=== PATIENT | male | born 1940 | race Caucasian/White ===

== ENCOUNTER → 2016-11-01 | Outpatient (CLI) | payer MEDICARE, OTHER ==
[~2016-11-01] MED LIST: ASPI81CH43; CLOP75TA28; SIMV5TAB50
== END | disposition home or self-care (01) ==
LOC: Rad HDHVI 10:22
PROVIDERS: ATTEND Internal Medicine Cardiovascular Disease
DX: I50.23 Acute on chronic systolic (congestive) heart failure (principal); I10 Essential (primary) hypertension; E78.00 Pure hypercholesterolemia, unspecified; I73.9 Peripheral vascular disease, unspecified; R07.9 Chest pain, unspecified; R42 Dizziness and giddiness
CPT/HCPCS: 93306

== ENCOUNTER → 2016-11-12 | Outpatient (CLI) | payer MEDICARE, OTHER ==
[~2016-11-12] VITALS: Ht 30.5 cm; Wt 0.5 kg
[~2016-11-12] MED LIST changes: +ADENOSINE 6 MG/2 ML INJ IV ONE; +ADENOSINE 70 MG in GIVE UN-DILUTED 0 ML IV ONE; +ADENOSINE 90 MG/30 ML INJ IV ONE
[2016-11-12 12:27] LABS: Basophils # (auto) 0 uL; Basophils % (auto) 0.6 % (0.0-2.0); Eosinophils # (auto) 0 uL; Eosinophils % (auto) 0.5 % (0.0-7.0); Hematocrit 47.5 % (41.0-53.0); Hemoglobin 16.3 g/dL (13.5-17.5); Lymphocytes # (auto) 1.7 uL; Lymphocytes % (auto) 23.6 % (10.0-50.0); Mean Corpuscular Hemoglobin 33.7 pg (28.0-32.0); Mean Corpuscular Hgb Conc. 34.4 g/dL (32.0-36.0); Mean Platelet Volume 8.2 fL (7.4-10.4); Monocytes # (auto) 0.6 uL; Monocytes % (auto) 7.8 % (0.0-12.0); Neutrophils # (auto) 4.8 uL; Neutrophils % (auto) 67.5 % (37.0-80.0); Platelet Count (auto) 226 10^3/uL (140-450); Red Cell Distribution Width 13.5 % (11.6-16.0); White Blood Cell 7.1 10^3/uL (4.4-10.8)
[2016-11-12 12:32] LABS: Urine Bilirubin Negative (Negative); Urine Blood Negative /uL (Negative); Urine Color Yellow (Yellow); Urine Glucose Normal (Normal); Urine Ketone Negative (Negative); Urine Nitrite Negative (Negative); Urine Urobilinogen Normal (Negative); Urine pH 5.5 (5.0-8.0)
[2016-11-12 12:59] LABS: Albumin 4.2 g/dL (3.4-5.0); BUN/Creatinine Ratio 26.5; Bilirubin, Direct 0.2 mg/dL (0-0.2); Bilirubin, Total 0.6 mg/dL (0.2-1.0); Calcium 9.2 mg/dL (8.5-10.1); Potassium 4.1 mmol/L (3.5-5.1); Total Protein 6.8 g/dL (6.4-8.2)
== END | disposition home or self-care (01) ==
LOC: Rad HDHVI 09:14
PROVIDERS: ATTEND Internal Medicine Cardiovascular Disease
DX: I10 Essential (primary) hypertension (principal); E78.00 Pure hypercholesterolemia, unspecified; K74.1 Hepatic sclerosis; E11.9 Type 2 diabetes mellitus without complications; R97.20 Elevated prostate specific antigen [PSA]; R53.81 Other malaise; E03.9 Hypothyroidism, unspecified; D64.9 Anemia, unspecified; E55.9 Vitamin D deficiency, unspecified; N39.0 Urinary tract infection, site not specified
CPT/HCPCS: 36415; 78452; 80048; 80061; 80076; 81003; 82306; 83036; 84153; 84403; 84439; 84443; 85025; 93005; 96374; 96375; J0153

== ENCOUNTER → 2017-05-29 | Outpatient (CLI) | payer MEDICARE, OTHER ==
[~2017-05-29] MED LIST changes: -ADENOSINE 6 MG/2 ML INJ IV ONE; -ADENOSINE 70 MG in GIVE UN-DILUTED 0 ML IV ONE; -ADENOSINE 90 MG/30 ML INJ IV ONE
== END | disposition home or self-care (01) ==
LOC: LAB 09:22
PROVIDERS: ATTEND Internal Medicine Cardiovascular Disease
DX: R53.81 Other malaise (principal)
CPT/HCPCS: 36415; 84403

== ENCOUNTER → 2017-12-26 | Outpatient (CLI) | payer MEDICARE, OTHER | END | disposition home or self-care (01) | LOC: LAB 08:52 | PROVIDERS: ATTEND Internal Medicine Cardiovascular Disease | DX: E29.1 Testicular hypofunction (principal); I10 Essential (primary) hypertension; E11.9 Type 2 diabetes mellitus without complications | CPT/HCPCS: 36415; 84403 ==

== ENCOUNTER → 2018-07-31 | Outpatient (CLI) | payer MEDICARE, BC | END | disposition home or self-care (01) | LOC: Rad HDHVI 15:38 | PROVIDERS: ATTEND Internal Medicine Cardiovascular Disease | DX: I25.10 Atherosclerotic heart disease of native coronary artery without angina pectoris (principal); I35.1 Nonrheumatic aortic (valve) insufficiency; I10 Essential (primary) hypertension; R53.83 Other fatigue | CPT/HCPCS: 93306 ==

== ENCOUNTER → 2018-08-20 | Outpatient (CLI) | payer MEDICARE, BC ==
[~2018-08-20] MED LIST changes: +IOHEXOL 350 MG/ML 100ML IJ ONE; +SODIUM CHLORIDE 0.9% 250 ML IV ONE
== END | disposition home or self-care (01) ==
LOC: Rad HDHVI 09:49
PROVIDERS: ATTEND Internal Medicine Cardiovascular Disease
DX: I11.0 Hypertensive heart disease with heart failure (principal); I50.22 Chronic systolic (congestive) heart failure; I25.10 Atherosclerotic heart disease of native coronary artery without angina pectoris; I25.5 Ischemic cardiomyopathy; I48.91 Unspecified atrial fibrillation; E03.9 Hypothyroidism, unspecified; E78.00 Pure hypercholesterolemia, unspecified; E11.51 Type 2 diabetes mellitus with diabetic peripheral angiopathy without gangrene; Z86.73 Personal history of transient ischemic attack (TIA), and cerebral infarction without residual deficits
CPT/HCPCS: 70496; 82565; 96360; G0463; J7050; Q9967

== ENCOUNTER → 2018-08-25 | Outpatient (CLI) | payer MEDICARE, BC ==
[~2018-08-25] MED LIST changes: -IOHEXOL 350 MG/ML 100ML IJ ONE; -SODIUM CHLORIDE 0.9% 250 ML IV ONE
[2018-08-25 14:10] VITALS: BP 121/83
[2018-08-25 15:03] VITALS: BP_SYST 121; BP_SYST 123; BP_DIAS 79; BP_DIAS 83
[2018-08-25 16:20] VITALS: BP 114/74
== END | disposition home or self-care (01) ==
LOC: CHF HDHVI 14:00
PROVIDERS: ATTEND Internal Medicine Cardiovascular Disease
DX: I25.118 Atherosclerotic heart disease of native coronary artery with other forms of angina pectoris (principal); I25.5 Ischemic cardiomyopathy; I48.91 Unspecified atrial fibrillation; R94.31 Abnormal electrocardiogram [ECG] [EKG]; E11.9 Type 2 diabetes mellitus without complications; I50.23 Acute on chronic systolic (congestive) heart failure; Z98.61 Coronary angioplasty status; Z86.73 Personal history of transient ischemic attack (TIA), and cerebral infarction without residual deficits
CPT/HCPCS: 93005; G0166; G0463

== ENCOUNTER → 2018-08-26 | Outpatient (CLI) | payer MEDICARE, BC ==
[2018-08-26 14:55] VITALS: BP_SYST 132; BP_SYST 136; BP_DIAS 72; BP_DIAS 80
== END | disposition home or self-care (01) ==
LOC: CHF HDHVI 14:13
PROVIDERS: ATTEND Internal Medicine Cardiovascular Disease
DX: I25.718 Atherosclerosis of autologous vein coronary artery bypass graft(s) with other forms of angina pectoris (principal); I25.5 Ischemic cardiomyopathy; I50.23 Acute on chronic systolic (congestive) heart failure; E11.9 Type 2 diabetes mellitus without complications; Z98.61 Coronary angioplasty status
CPT/HCPCS: G0166

== ENCOUNTER → 2018-09-03 | Outpatient (CLI) | payer MEDICARE, BC ==
[2018-09-03 14:52] VITALS: BP 113/97
[2018-09-03 15:55] VITALS: BP 137/74
== END | disposition home or self-care (01) ==
LOC: CHF HDHVI 14:19
PROVIDERS: ATTEND Internal Medicine Cardiovascular Disease
DX: I25.718 Atherosclerosis of autologous vein coronary artery bypass graft(s) with other forms of angina pectoris (principal); I50.23 Acute on chronic systolic (congestive) heart failure; I25.5 Ischemic cardiomyopathy; Z98.61 Coronary angioplasty status; Z86.39 Personal history of other endocrine, nutritional and metabolic disease
CPT/HCPCS: G0166

== ENCOUNTER → 2018-09-04 | Outpatient (CLI) | payer MEDICARE, BC ==
[2018-09-04 13:44] VITALS: BP_SYST 125; BP_SYST 126; BP_DIAS 62; BP_DIAS 70
== END | disposition home or self-care (01) ==
LOC: Rad HDHVI 13:21
PROVIDERS: ATTEND Internal Medicine Cardiovascular Disease
DX: I25.718 Atherosclerosis of autologous vein coronary artery bypass graft(s) with other forms of angina pectoris (principal); I25.5 Ischemic cardiomyopathy; I50.23 Acute on chronic systolic (congestive) heart failure; Z98.61 Coronary angioplasty status; Z86.39 Personal history of other endocrine, nutritional and metabolic disease
CPT/HCPCS: G0166

== ENCOUNTER → 2018-09-05 | Outpatient (CLI) | payer MEDICARE, BC ==
[2018-09-05 13:10] LABS: Potassium 4.3 mmol/L (3.5-5.1)
[2018-09-05 13:16] LABS: BUN/Creatinine Ratio 21.1; Calcium 8.5 mg/dL (8.5-10.1); Uric Acid 7.9 mg/dL (3.5-7.2)
== END | disposition home or self-care (01) ==
LOC: LABCORP 09:33
PROVIDERS: ATTEND Internal Medicine Cardiovascular Disease
DX: I10 Essential (primary) hypertension (principal); M10.9 Gout, unspecified
CPT/HCPCS: 36415; 80048; 84550

== ENCOUNTER → 2018-09-05 | Outpatient (CLI) | payer MEDICARE, BC | END | disposition home or self-care (01) | LOC: XYW 10:09 | PROVIDERS: ATTEND Internal Medicine Cardiovascular Disease | DX: M79.89 Other specified soft tissue disorders (principal) | CPT/HCPCS: 93971 ==

== ENCOUNTER → 2018-09-22 | Outpatient (CLI) | payer MEDICARE, BC ==
[2018-09-22 14:04] VITALS: BP_SYST 140; BP_SYST 159; BP_DIAS 79; BP_DIAS 92
--- NOTE | 2018-09-22 14:04 | NUR ---
EECP Tx# 5 First BP check on his Left arm is at 159/92 with a heart rate of 45bpm. Patient denies any chest pain,SOB,Fatigue. Medications have been taken this AM. Arginext was taken before coming in to his Tx. 1st pleth at 7 min into Tx EECP pressure will slowly be increase up to 160 if tolerable due to Left foot discomfort 11/23. 2nd pleth at 28 min into Tx Patient is tolerating Tx pressure at 160.Monitor shows arrhythmias with a HR of 82bpm.Patient denies any chest pain,SOB,Fatigue at this time.Patient feels comfortable with pressure at 160 and calves.No discomfort on left foot at this moment. We will continue to monitor patient through his Tx if any changes occur. 3rd and final pleth at 50 min into Tx patient is tolerating Tx pressure at this time.Monitor shows arrhythmias with a heart rate of 77bpm.We will continue to monitor patient through his Tx if any other changes occur.Patient has 10 min left till his Tx is completed for the day. Last BP check on his Left arm is at 140/79 with a heart rate of 82bpm. Patient denies any chest pain,SOB,Fatigue at this time.
== END | disposition home or self-care (01) ==
LOC: CHF HDHVI 13:53
PROVIDERS: ATTEND Internal Medicine Cardiovascular Disease
DX: I25.718 Atherosclerosis of autologous vein coronary artery bypass graft(s) with other forms of angina pectoris (principal); I50.23 Acute on chronic systolic (congestive) heart failure; I25.5 Ischemic cardiomyopathy; Z95.5 Presence of coronary angioplasty implant and graft; Z86.39 Personal history of other endocrine, nutritional and metabolic disease
CPT/HCPCS: G0166

== ENCOUNTER → 2018-09-23 | Outpatient (CLI) | payer MEDICARE, BC ==
[2018-09-23 13:50] VITALS: BP_SYST 140; BP_SYST 147; BP_DIAS 90; BP_DIAS 93
== END | disposition home or self-care (01) ==
LOC: Rad HDHVI 13:33
PROVIDERS: ATTEND Internal Medicine Cardiovascular Disease
DX: I82.90 Acute embolism and thrombosis of unspecified vein (principal); E11.59 Type 2 diabetes mellitus with other circulatory complications; I25.718 Atherosclerosis of autologous vein coronary artery bypass graft(s) with other forms of angina pectoris; I25.5 Ischemic cardiomyopathy; I11.0 Hypertensive heart disease with heart failure; I50.23 Acute on chronic systolic (congestive) heart failure; Z98.61 Coronary angioplasty status
CPT/HCPCS: 93970; G0166

== ENCOUNTER → 2018-09-24 | Outpatient (CLI) | payer MEDICARE, BC ==
[2018-09-24 13:50] VITALS: BP_SYST 129; BP_SYST 146; BP_DIAS 62; BP_DIAS 79
--- NOTE | 2018-09-24 13:50 | NUR ---
[facility]P Tx# 7 First BP check on his Left arm is at 146/79 with a heart rate of 89bpm. Patient denies any symptoms or discomfort at this time. Arginext was taken before coming in to his Tx. Medications have anna taken before coming in. 1st pleth at 1 min into Tx patient EECP pressure will be increase up to 200.Patient can't tolerate pressure higher than 200 at the moment. 2nd pleth a 28 min into Tx patient is tolerating Tx pressure at 200 well with no discomfort at this time.Monitor shows excellent pleth valves with a heart rate of 74bpm. 3rd and final pleth at 58 min into Tx patient is doing well at this time.Monitor shows good pleth valves with a heart rate of 75bpm.Patient has 2 min left till his Tx is completed for the day. Last BP and HR check on his Left arm is at 129/62 with a heart rate of 81bpm. Patient denies any symptoms or discomfort at this moment.
== END | disposition home or self-care (01) ==
LOC: CHF HDHVI 13:32
PROVIDERS: ATTEND Internal Medicine Cardiovascular Disease
CPT/HCPCS: G0166

== ENCOUNTER → 2018-09-25 | Outpatient (CLI) | payer MEDICARE, BC ==
[2018-09-25 13:44] VITALS: BP_SYST 128; BP_SYST 147; BP_DIAS 75; BP_DIAS 80
--- NOTE | 2018-09-25 13:44 | NUR ---
[facility]P Tx# 8 First BP check on his Left arm is at 128/75 with a heart rate of 84bpm. Patient denies any chest pain,SOB,Fatigue at this time. Arginext was taken before coming in to his Tx. Medications have been taken before coming in to his Tx. 1st pleth at 1 min into Tx EECP pressure will stay at 120 for today's Tx.Patient has been having discomfort with left foot.M.D. has been notify. 2nd pleth at 43 min into Tx patient is doing well with Tx pressure at 120.No discomfort or any other symptoms at this moment.We will continue to monitor patient through his Tx if any changes occur. 3rd and final pleth at 56 min into Tx patient is doing well at this time.Monitor shows excellent pleth valves with a heart rate of 89bpm.Patient has 4 min left till his Tx is completed for the day. Last BP and HR check on his Left arm is at 147/80 with a heart rate of 71bpm. Patient denies any symptoms or discomfort at this time. Patient will come in tomorrow for Tx# 9
== END | disposition home or self-care (01) ==
LOC: CHF HDHVI 13:30
PROVIDERS: ATTEND Internal Medicine Cardiovascular Disease
DX: I25.718 Atherosclerosis of autologous vein coronary artery bypass graft(s) with other forms of angina pectoris (principal); I25.5 Ischemic cardiomyopathy; I11.0 Hypertensive heart disease with heart failure; I50.23 Acute on chronic systolic (congestive) heart failure; E11.9 Type 2 diabetes mellitus without complications; Z98.61 Coronary angioplasty status
CPT/HCPCS: G0166

== ENCOUNTER → 2018-09-26 | Outpatient (CLI) | payer MEDICARE, BC ==
[2018-09-26 08:42] VITALS: BP_SYST 129; BP_SYST 140; BP_DIAS 86; BP_DIAS 88
--- NOTE | 2018-09-26 08:42 | NUR ---
[facility]P Tx# 9 First BP check on his Left arm is at 140/88 with a heart rate of 81bpm. Patient denies any chest pain,SOB,Fatigue at this time. Arginext was taken before coming in to his Tx. Medications have been taken before coming in to his Tx. 1st pleth at 1 min into Tx EECP pressure will increase up to 200 if tolerable.Patient has no cc at this time. We will monitor patient through Tx if any changes occur. 2nd pleth at 39 min into Tx patient is doing well with Tx pressure at 200.No discomfort or any other symptoms at this moment.We will continue to monitor patient through his Tx if any changes occur. 3rd and final pleth at 58 min into Tx patient is doing well at this time.Monitor shows good pleth valves with a heart rate of 63bpm.Patient has 2 min left till his Tx is completed for the day. Last BP and HR check on his Left arm is at 129/86 with a heart rate of 83bpm. Patient denies any symptoms or discomfort at this time.
== END | disposition home or self-care (01) ==
LOC: CHF HDHVI 08:21
PROVIDERS: ATTEND Internal Medicine Cardiovascular Disease
DX: I25.718 Atherosclerosis of autologous vein coronary artery bypass graft(s) with other forms of angina pectoris (principal); I25.5 Ischemic cardiomyopathy; I11.0 Hypertensive heart disease with heart failure; I50.23 Acute on chronic systolic (congestive) heart failure; E11.9 Type 2 diabetes mellitus without complications; Z98.61 Coronary angioplasty status
CPT/HCPCS: G0166

== ENCOUNTER → 2018-09-29 | Outpatient (CLI) | payer MEDICARE, BC | END | disposition home or self-care (01) | LOC: CHF HDHVI 13:10 | PROVIDERS: ATTEND Internal Medicine Cardiovascular Disease | DX: I25.718 Atherosclerosis of autologous vein coronary artery bypass graft(s) with other forms of angina pectoris (principal); I25.5 Ischemic cardiomyopathy; I11.0 Hypertensive heart disease with heart failure; I50.23 Acute on chronic systolic (congestive) heart failure; Z98.61 Coronary angioplasty status | CPT/HCPCS: G0166 ==

== ENCOUNTER → 2018-09-30 | Outpatient (CLI) | payer MEDICARE, BC ==
[2018-09-30 14:23] VITALS: BP 139/83
[2018-09-30 14:56] VITALS: BP 147/93
== END | disposition home or self-care (01) ==
LOC: CHF HDHVI 13:28
PROVIDERS: ATTEND Internal Medicine Cardiovascular Disease
DX: I25.118 Atherosclerotic heart disease of native coronary artery with other forms of angina pectoris (principal); I11.0 Hypertensive heart disease with heart failure; I25.5 Ischemic cardiomyopathy; I50.23 Acute on chronic systolic (congestive) heart failure; E11.9 Type 2 diabetes mellitus without complications; Z98.61 Coronary angioplasty status
CPT/HCPCS: G0166

== ENCOUNTER → 2018-10-01 | Outpatient (CLI) | payer MEDICARE, BC ==
[2018-10-01 13:31] VITALS: BP 124/75
[2018-10-01 14:31] VITALS: BP 133/88
--- NOTE | 2018-10-01 14:31 | NUR ---
PATIENT COMPLETED TREATMENT WITHOUT AN ADVERSE EVENT. PATIENT DENIED ANY SYMPTOMS DURING TREATMENT. UPPER CUFF TURNED OFF DURING TREATMENT, PATIENT WILL RETURN TOMORROW FOR NEXT TREATMENT.
== END | disposition home or self-care (01) ==
LOC: CHF HDHVI 13:22
PROVIDERS: ATTEND Internal Medicine Cardiovascular Disease
DX: I25.718 Atherosclerosis of autologous vein coronary artery bypass graft(s) with other forms of angina pectoris (principal); I25.5 Ischemic cardiomyopathy; I11.0 Hypertensive heart disease with heart failure; I50.23 Acute on chronic systolic (congestive) heart failure; E11.9 Type 2 diabetes mellitus without complications; Z98.61 Coronary angioplasty status
CPT/HCPCS: G0166

== ENCOUNTER → 2018-10-02 | Outpatient (CLI) | payer MEDICARE, BC ==
[2018-10-02 13:39] VITALS: BP 139/75
[2018-10-02 14:39] VITALS: BP 132/82
--- NOTE | 2018-10-02 14:39 | NUR ---
PATIENT COMPLETED TREATMENT WITHOUT AN ADVERSE EVENT. PT DENIED ANY SYMPTOMS, UPPER CUFF TURNED OFF DURING TREATMENT. PATIENT WILL RETURN TOMORROW FOR NEXT TREATMENT.
== END | disposition home or self-care (01) ==
LOC: CHF HDHVI 13:22
PROVIDERS: ATTEND Internal Medicine Cardiovascular Disease
DX: I25.718 Atherosclerosis of autologous vein coronary artery bypass graft(s) with other forms of angina pectoris (principal); I25.5 Ischemic cardiomyopathy; I11.0 Hypertensive heart disease with heart failure; I50.23 Acute on chronic systolic (congestive) heart failure; E11.9 Type 2 diabetes mellitus without complications; Z98.61 Coronary angioplasty status
CPT/HCPCS: G0166

== ENCOUNTER → 2018-10-03 | Outpatient (CLI) | payer MEDICARE, BC ==
[2018-10-03 08:30] VITALS: BP_SYST 130; BP_SYST 138; BP_DIAS 78; BP_DIAS 89
--- NOTE | 2018-10-03 09:23 | NUR ---
[facility] Tx#14 First BP check on his Left arm is at 138/78 with a heart rate of 80bpm. Arginext was taken before coming in to his Tx. Patient is having discomfort on right knee 11/23 4 days.Will keep monitoring patient through his Tx is any changes occur. 2nd pleth at 32 min into Tx patient EECP pressure is at 160 patient is tolerating Tx pressure at 160.EECP pressure was reduce at this time.Patient denies any symptoms or discomfort at this time. 3rd and final pleth at 50 min into Tx patient is tolerating Tx pressure at this time.Monitor shows good pleth valves with a heart rate of 78bpm.Patient has 10 min left till Tx is completed for the day. Last BP check on Left arm is at 130/89 with a heart rate of 76bpm.
== END | disposition home or self-care (01) ==
LOC: CHF HDHVI 08:36
PROVIDERS: ATTEND Internal Medicine Cardiovascular Disease
DX: I25.718 Atherosclerosis of autologous vein coronary artery bypass graft(s) with other forms of angina pectoris (principal); I25.5 Ischemic cardiomyopathy; I11.0 Hypertensive heart disease with heart failure; I50.23 Acute on chronic systolic (congestive) heart failure; E11.9 Type 2 diabetes mellitus without complications; Z98.61 Coronary angioplasty status
CPT/HCPCS: G0166

== ENCOUNTER → 2018-10-07 | Outpatient (CLI) | payer MEDICARE, BC ==
[2018-10-07 13:41] VITALS: BP_SYST 129; BP_SYST 130; BP_DIAS 76; BP_DIAS 82
--- NOTE | 2018-10-07 13:41 | NUR ---
[facility] Tx# 15 First BP check on his Left arm is at 129/82 with a heart rate of 82bpm. Patient came in and c/o Discomfort in both legs at this time 02/23. EECP pressure will be increase as tolerable with upper cuff turn off during his Tx. Medications are the same Arginext has been taken before coming in to his Tx. 1st pleth at 2 min into Tx patient EECP pressure will be increase if tolerable. 2nd pleth at 25 min into Tx patient is tolerating Tx pressure at 80 with upper cuff turn off during his Tx. Monitor shows good pleth valves with a heart rate of 80bpm. 3rd and final pleth at 45 min into Tx patient is tolerating tx pressure at this time.Patient denies any symptoms or discomfort at this time.Monitor show good pleth valves with a heart rate of 88bpm.Patient has 15 min left till his Tx is completed for the day. Last BP and HR check on his Left arm is at 130/76 with a heart rate of 78bpm. Patient denies any symptoms or discomfort at this time. Patient will notify us tomorrow if he keeps having discomfort in both legs at this time patient denies any symptoms or discomfort.
== END | disposition home or self-care (01) ==
LOC: CHF HDHVI 13:16
PROVIDERS: ATTEND Internal Medicine Cardiovascular Disease
DX: I25.718 Atherosclerosis of autologous vein coronary artery bypass graft(s) with other forms of angina pectoris (principal); I25.5 Ischemic cardiomyopathy; I11.0 Hypertensive heart disease with heart failure; I50.23 Acute on chronic systolic (congestive) heart failure; E11.9 Type 2 diabetes mellitus without complications; Z98.61 Coronary angioplasty status
CPT/HCPCS: G0166

== ENCOUNTER → 2018-10-08 | Outpatient (CLI) | payer MEDICARE, BC ==
[2018-10-08 13:47] VITALS: BP_SYST 139; BP_SYST 141; BP_DIAS 73; BP_DIAS 89
--- NOTE | 2018-10-08 13:47 | NUR ---
[facility] Tx# 16 First BP check on his Left arm is at 139/73 with a heart rate of 70bpm. Patient states he feels no discomfort from yesterday's Tx.Patient previously c/o discomfort on lower extremities. Arginext was taken this AM before coming in to his Tx. Medications have been taken before coming in to his Tx. 1st pleth at 7 min into Tx patient EECP pressure will be increase if tolerable. 2nd pleth at 37 min into Tx patient will like Tx pressure to be reduce can't tolerate Tx pressure at 120 at this time. Monitor shows excellent pleth valves with a heart rate of 82bpm. 3rd and final pleth at 59 min into Tx patient is tolerating Tx pressure at 80 well at this with no complaints or problems at this moment.Patient has 1 min left till his Tx is completed for the day. Last BP check on his Left arm is at 141/89 with a heart rate of 77bpm. Patient denies any symptoms or discomfort at this time.
== END | disposition home or self-care (01) ==
LOC: CHF HDHVI 12:42
PROVIDERS: ATTEND Internal Medicine Cardiovascular Disease
DX: I25.718 Atherosclerosis of autologous vein coronary artery bypass graft(s) with other forms of angina pectoris (principal); I25.5 Ischemic cardiomyopathy; I11.0 Hypertensive heart disease with heart failure; I50.23 Acute on chronic systolic (congestive) heart failure; E11.9 Type 2 diabetes mellitus without complications; M10.9 Gout, unspecified; Z98.61 Coronary angioplasty status
CPT/HCPCS: G0166

== ENCOUNTER → 2018-10-09 | Outpatient (CLI) | payer MEDICARE, BC ==
[2018-10-09 13:39] VITALS: BP_SYST 126; BP_SYST 137; BP_DIAS 75; BP_DIAS 89
--- NOTE | 2018-10-09 13:39 | NUR ---
[facility] Tx# 17 First BP check on his Left arm is at 137/89 with a heart rate of 75bpm. Per Patient he does not feel no discomfort in lower extremities Arginext was taken this AM before coming in to his Tx. Medications have been taken before coming in to his Tx. 1st pleth at 7 min into Tx patient EECP pressure will be increase if tolerable. 2nd pleth at 34 min into Tx patient is tolerating Tx pressure at 80 at this time we tried to increase pressure but patient can't tolerate it.Pressure is at 80 with upper cuff off.Monitor shows good pleth valves with a heart rate of 67bpm. 3rd and final pleth at 55 min into Tx patient is doing well at this time.Monitor shows good pleth valves with a heart rate of 67bpm.Patient denies any symptoms or discomfort at this time.Patient has 5 min left till his Tx is completed for the day. Last BP check on his Left arm is at 126/75 with a heart rate of 67bpm. Patient denies any symptoms or discomfort at this time.
== END | disposition home or self-care (01) ==
LOC: Rad HDHVI 13:13
PROVIDERS: ATTEND Internal Medicine Cardiovascular Disease
DX: I25.718 Atherosclerosis of autologous vein coronary artery bypass graft(s) with other forms of angina pectoris (principal); I25.5 Ischemic cardiomyopathy; I50.23 Acute on chronic systolic (congestive) heart failure; E11.9 Type 2 diabetes mellitus without complications; Z98.61 Coronary angioplasty status
CPT/HCPCS: G0166

== ENCOUNTER → 2018-10-13 | Outpatient (CLI) | payer MEDICARE, BC ==
[2018-10-13 13:38] VITALS: BP_SYST 117; BP_SYST 140; BP_DIAS 72; BP_DIAS 87
--- NOTE | 2018-10-13 13:38 | NUR ---
[facility] Tx# 18 First BP check in left arm is at 140/87 with a heart rate of 84bpm. Patient denies any symptoms or discomfort at this time. Patient took his Arginext before coming in to his Tx. Medications are the same no new changes. 1st pleth at 9 min into Tx EECP pressure will increase if tolerable. 2nd pleth at 28 min into Tx patient is tolerating Tx pressure at 160 well with no complaints or problems at this moment. Monitor shows good pleth valves with a heart rate of 87bpm. 3rd and final pleth at 50 min into Tx patient is tolerating Tx pressure at 160 well with no discomfort at this time.Monitor shows excellent pleth valves with a heart rate of 83bpm.Patient has 10 min left till his Tx is completed for the day. Last BP check on his Left arm is at 117/72 with a heart rate of 81bpm. Patient denies any symptoms or discomfort at this time.
== END | disposition home or self-care (01) ==
LOC: CHF HDHVI 13:29
PROVIDERS: ATTEND Internal Medicine Cardiovascular Disease
DX: I25.718 Atherosclerosis of autologous vein coronary artery bypass graft(s) with other forms of angina pectoris (principal); I25.5 Ischemic cardiomyopathy; E11.9 Type 2 diabetes mellitus without complications; I11.0 Hypertensive heart disease with heart failure; I50.23 Acute on chronic systolic (congestive) heart failure; Z98.61 Coronary angioplasty status
CPT/HCPCS: G0166

== ENCOUNTER → 2018-10-14 | Outpatient (CLI) | payer MEDICARE, BC ==
[2018-10-14 13:47] VITALS: BP_SYST 114; BP_SYST 140; BP_DIAS 79; BP_DIAS 84
--- NOTE | 2018-10-14 13:47 | NUR ---
[facility] Tx# 19 First BP check in left arm is at 140/79 with a heart rate of 84bpm. Patient denies any symptoms or discomfort at this time. Patient took his Arginext before coming in to his Tx. Medications are the same no new changes. 1st pleth at 7 min into Tx EECP pressure will increase if tolerable. 2nd pleth at 41 min into Tx patient is tolerating Tx pressure at 120 well with no complaints or problems at this moment.Patient can't tolerate EECP pressure higher than 120 for today's Tx. Monitor shows good pleth valves with a heart rate of 92bpm. 3rd and final pleth at 55 min into Tx patient is tolerating Tx pressure at 120 well .Monitor shows good pleth valves with a heart rate of 91bpm.Patient has 5 min left till his Tx is completed for the day. Last BP check on his Left arm is at 114/84 with a heart rate of 89bpm. Patient denies any symptoms or discomfort at this time.
== END | disposition home or self-care (01) ==
LOC: CHF HDHVI 13:22
PROVIDERS: ATTEND Internal Medicine Cardiovascular Disease
DX: I25.718 Atherosclerosis of autologous vein coronary artery bypass graft(s) with other forms of angina pectoris (principal); I25.5 Ischemic cardiomyopathy; I11.0 Hypertensive heart disease with heart failure; I50.23 Acute on chronic systolic (congestive) heart failure; E11.9 Type 2 diabetes mellitus without complications; Z98.61 Coronary angioplasty status
CPT/HCPCS: G0166

== ENCOUNTER → 2018-10-15 | Outpatient (CLI) | payer MEDICARE, BC ==
[2018-10-15 13:33] VITALS: BP_SYST 121; BP_SYST 130; BP_DIAS 66; BP_DIAS 75
--- NOTE | 2018-10-15 13:33 | NUR ---
[facility]P Tx# 20 First BP check on his Left arm is at 121/75 with a heart rate of 79bpm.Medications are the same no new changes.Arginext was taken before coming in to his Tx.Patient is doing well at this time EECP pressure at 120 patient can't tolerate pressure higher than 120 at this time.Monitor shows good pleth valves.Patient is doing well at this time. Last BP check on his Left arm is at 130/66 with a heart rate of 73bpm. Patient denies any symptoms or discomfort at this time.
== END | disposition home or self-care (01) ==
LOC: CHF HDHVI 13:09
PROVIDERS: ATTEND Internal Medicine Cardiovascular Disease
DX: I25.718 Atherosclerosis of autologous vein coronary artery bypass graft(s) with other forms of angina pectoris (principal); I25.5 Ischemic cardiomyopathy; I11.0 Hypertensive heart disease with heart failure; I50.23 Acute on chronic systolic (congestive) heart failure; E11.9 Type 2 diabetes mellitus without complications; Z98.61 Coronary angioplasty status
CPT/HCPCS: G0166

== ENCOUNTER → 2018-10-16 | Outpatient (CLI) | payer MEDICARE, BC ==
[2018-10-16 10:07] VITALS: BP_SYST 113; BP_SYST 124; BP_DIAS 71; BP_DIAS 83
--- NOTE | 2018-10-16 10:07 | NUR ---
[facility] Tx# 21 First BP check on his Left arm is at 113/71 with a heart rate of 71bpm.Patient denies any symptoms or discomfort at this time.Patient took his Arginext before coming in to his Tx.Medications are the same no new changes.EECP pressure will be increase if tolerable. Patient is doing well with his Tx.Patient denies any symptoms or discomfort at this time.Patient is tolerating Tx pressure at 120 at his moment.Patient can't tolerate Tx pressure higher that 120 at this time.Monitor shows good pleth valves no complaints or discomfort at this time. Patient has completed Tx for the day. Last BP check on his Left arm is at 124/83 with a heart rate of 77bpm. Patient denies any symptoms or discomfort at this time.
== END | disposition home or self-care (01) ==
LOC: Rad HDHVI 10:08
PROVIDERS: ATTEND Internal Medicine Cardiovascular Disease
DX: I25.718 Atherosclerosis of autologous vein coronary artery bypass graft(s) with other forms of angina pectoris (principal); I25.5 Ischemic cardiomyopathy; I11.0 Hypertensive heart disease with heart failure; I50.23 Acute on chronic systolic (congestive) heart failure; E11.9 Type 2 diabetes mellitus without complications; Z98.61 Coronary angioplasty status
CPT/HCPCS: G0166

== ENCOUNTER → 2018-10-17 | Outpatient (CLI) | payer MEDICARE, BC ==
[2018-10-17 08:40] VITALS: BP_SYST 128; BP_SYST 138; BP_DIAS 84
--- NOTE | 2018-10-17 08:40 | NUR ---
[facility]P Tx# 22 First BP check on his Left arm is at 128/84 with a heart rate of 75bpm. Patient denies any symptoms or discomfort at this time. Patient took his Arginext before coming in to his Tx. Medications are the same no new changes. EECP pressure will increase if tolerable. 2nd pleth at 38 min into Tx patient is tolerating Tx pressure at 120 patient can't tolerate pressure higher than 120 at this moment.Monitor show good pleth valves.Patient denies any symptoms or discomfort at this time. 3rd and final pleth at 52 min into Tx Patient is tolerating Tx pressure at 120 well with no complaints or discomfort at this time.Monitor show excellent pleth valves with a heart rate of 74bpm.Patient has 8 min left till his Tx is completed for the day. Last BP check on his Left arm is at 138/84 with a heart rate of 71bpm. Patient denies any symptoms or discomfort at this time.
== END | disposition home or self-care (01) ==
LOC: CHF HDHVI 08:13
PROVIDERS: ATTEND Internal Medicine Cardiovascular Disease
DX: I25.718 Atherosclerosis of autologous vein coronary artery bypass graft(s) with other forms of angina pectoris (principal); I25.5 Ischemic cardiomyopathy; I11.0 Hypertensive heart disease with heart failure; I50.23 Acute on chronic systolic (congestive) heart failure; E11.9 Type 2 diabetes mellitus without complications; Z98.61 Coronary angioplasty status
CPT/HCPCS: G0166

== ENCOUNTER → 2018-10-20 | Outpatient (CLI) | payer MEDICARE, BC ==
[2018-10-20 14:07] VITALS: BP_SYST 134; BP_SYST 140; BP_DIAS 79; BP_DIAS 81
--- NOTE | 2018-10-20 14:07 | NUR ---
[facility]P Tx# 23 First BP check on his Left arm is at 140/79 with a heart rate 80bpm. Patient denies any symptoms or discomfort at this time. Arginext was taken before coming in to his Tx. 1st pleth at 1 min into Tx EECP pressure will increase if tolerable. 2nd pleth at 28 min into Tx patient is tolerating Tx pressure at 120 patient can't tolerate Tx pressure higher than 120 at this time. Monitor shows excellent pleth valves with a heart rate of 75bpm. 3rd and final pleth at 50 min into Tx.Monitor shows excellent pleth valves with a heart rate of 82bpm. Patient has 10 min left till his Tx is completed for the day. Last BP and HR check on his Left arm is at 134/81 with a heart rate of 69bpm. Patient denies any symptoms or discomfort at this time.
== END | disposition home or self-care (01) ==
LOC: CHF HDHVI 14:07
PROVIDERS: ATTEND Internal Medicine Cardiovascular Disease
DX: I25.718 Atherosclerosis of autologous vein coronary artery bypass graft(s) with other forms of angina pectoris (principal); I50.23 Acute on chronic systolic (congestive) heart failure; I25.5 Ischemic cardiomyopathy; E11.9 Type 2 diabetes mellitus without complications; Z98.61 Coronary angioplasty status
CPT/HCPCS: G0166

== ENCOUNTER → 2018-10-21 | Outpatient (CLI) | payer MEDICARE, BC ==
[2018-10-21 13:44] VITALS: BP_SYST 123; BP_SYST 128; BP_DIAS 67; BP_DIAS 74
--- NOTE | 2018-10-21 13:44 | NUR ---
E[facility]P Tx# 25 First BP check on his left arm is at 128/74 with a heart rate of 75bpm.Arginext was taken at home before coming in to his Tx.Medications are the same no new changes. 1st pleth at 6 min into Tx pressure will increase if tolerable. 2nd pleth at 25 min into Tx patient is Tolerating Tx pressure at 120 well with no complaints or discomfort at this moment.Patient can't tolerate EECP pressure higher than 120 at this time. Monitor shows a good ekg and waveforms with good pleth valves and a heart rate of 75bpm. 3rd and final pleth at 46 min into Tx patient is doing well and tolerating Tx pressure at 120 with no symptoms or discomfort at this time.Monitor shows a good ekg and waveforms with excellent pleth valves and a heart rate of 72bpm.Patient has 14 min left till his Tx is completed for the day. Last BP check on left arm is at 123/67 with a heart rate of 72bpm. Patient denies any symptoms or discomfort at this time.
== END | disposition home or self-care (01) ==
LOC: CHF HDHVI 13:13
PROVIDERS: ATTEND Internal Medicine Cardiovascular Disease
DX: I25.718 Atherosclerosis of autologous vein coronary artery bypass graft(s) with other forms of angina pectoris (principal); E11.9 Type 2 diabetes mellitus without complications; I25.5 Ischemic cardiomyopathy; I50.23 Acute on chronic systolic (congestive) heart failure; Z98.61 Coronary angioplasty status
CPT/HCPCS: G0166

== ENCOUNTER → 2018-10-23 | Outpatient (CLI) | payer MEDICARE, BC ==
[2018-10-23 13:40] VITALS: BP_SYST 110; BP_SYST 133; BP_DIAS 66; BP_DIAS 68
--- NOTE | 2018-10-23 13:40 | NUR ---
[facility]P Tx# 26 First BP check on Left arm is at 133/66 with a heart rate of 86bpm. Arginext was taken before coming in to his Tx. 1st pleth at 1 min into Tx EECP pressure will be increase if tolerable. 2nd pleth at 25 min into Tx patient is tolerating Tx pressure at 120 well with no complaints or problems at this moment.Patient can't tolerate Tx pressure higher than 120 at this moment.Monitor shows good pleth valves with a heart rate of 80bpm. 3rd and final pleth at 46 min into Tx patient is tolerating Tx pressure at 120 well with no discomfort at this time.Monitor shows excellent pleth valves with a good ekg and waveforms and a heart rate of 77bpm. Patient has 14 min left till his Tx is completed for the day. Last BP check on his Left arm is at 110/68 with a heart rate of 74bpm. Patient denies any symptoms or discomfort at this time.
== END | disposition home or self-care (01) ==
LOC: CHF HDHVI 13:23
PROVIDERS: ATTEND Internal Medicine Cardiovascular Disease
DX: I25.718 Atherosclerosis of autologous vein coronary artery bypass graft(s) with other forms of angina pectoris (principal); I25.5 Ischemic cardiomyopathy; I11.0 Hypertensive heart disease with heart failure; I50.23 Acute on chronic systolic (congestive) heart failure; E11.9 Type 2 diabetes mellitus without complications; Z98.61 Coronary angioplasty status
CPT/HCPCS: G0166

== ENCOUNTER → 2018-10-24 | Outpatient (CLI) | payer MEDICARE, BC ==
[2018-10-24 08:47] VITALS: BP_SYST 132; BP_SYST 138; BP_DIAS 60; BP_DIAS 72
--- NOTE | 2018-10-24 08:47 | NUR ---
E[facility]P Tx# 27 First BP check on his left arm is at 138/72 with a heart rate of 88bpm. Patient denies any symptoms or discomfort at this time. Arginext was taken before coming in to his Tx. 1st pleth at 1 min into Tx Patient EECP pressure will be increase if tolerable. 2nd pleth at 42 min into Tx patient is tolerating Tx pressure at 120 at this moment.Patient can't tolerate Tx pressure higher than 120 at this moment.Patient denies any symptoms or discomfort at this time. 3rd and final pleth at 55 min into Tx patient is doing well with Tx pressure at 120.Monitor shows excellent pleth valves with a heart rate of 75bpm.Patient has 5 min left till his Tx is completed for the day. Last BP check on his Left arm is at 132/60 with a heart rate 68bpm. Patient denies any symptoms or discomfort at this time.
== END | disposition home or self-care (01) ==
LOC: CHF HDHVI 08:46
PROVIDERS: ATTEND Internal Medicine Cardiovascular Disease
DX: I25.718 Atherosclerosis of autologous vein coronary artery bypass graft(s) with other forms of angina pectoris (principal); I25.5 Ischemic cardiomyopathy; I11.0 Hypertensive heart disease with heart failure; I50.23 Acute on chronic systolic (congestive) heart failure; E11.9 Type 2 diabetes mellitus without complications; Z98.61 Coronary angioplasty status
CPT/HCPCS: G0166

== ENCOUNTER → 2018-10-27 | Outpatient (CLI) | payer MEDICARE, BC ==
--- NOTE | 2018-10-28 08:00 | NUR ---
E[facility]P Tx# 28 Notes for DOS of 10/27/2018 First BP check on his Left arm is at 120/69 with a heart rate of 89bpm. Patient denies any symptoms or discomfort at this time. Arginext was taken before coming in to his Tx. 1st pleth at 1 min into Tx patient EECP pressure will increase if tolerable. 2nd pleth at 33 min into Tx patient is tolerating Tx pressure at 120 well with no discomfort at this time.Patient can't tolerate pressure at a higher rate at this time. 3rd and final pleth at 54 min into Tx patient is doing well with no discomfort at this time.Monitor shows good pleth valves with a heart rate of 91bpm.Patient denies any symptoms or discomfort at this time. Patient has 6 min left till his Tx is completed for the day. Last BP check on his Left arm is at 126/70 with a heart rate of 80bpm. Patient denies any symptoms or discomfort at this time.
[2018-10-28 09:24] VITALS: BP_SYST 120; BP_SYST 126; BP_DIAS 69; BP_DIAS 70
== END | disposition home or self-care (01) ==
LOC: CHF HDHVI 13:30
PROVIDERS: ATTEND Internal Medicine Cardiovascular Disease
DX: I25.718 Atherosclerosis of autologous vein coronary artery bypass graft(s) with other forms of angina pectoris (principal); I25.5 Ischemic cardiomyopathy; I11.0 Hypertensive heart disease with heart failure; I50.23 Acute on chronic systolic (congestive) heart failure; E11.9 Type 2 diabetes mellitus without complications; Z98.61 Coronary angioplasty status
CPT/HCPCS: G0166

== ENCOUNTER → 2018-10-28 | Outpatient (CLI) | payer MEDICARE, BC ==
[2018-10-28 10:23] VITALS: BP_SYST 125; BP_SYST 140; BP_DIAS 72; BP_DIAS 78
--- NOTE | 2018-10-28 10:23 | NUR ---
[facility]P Tx# 29 First BP check on his Left arm is at 140/72 with a heart rate of 880bpm. Patient denies any symptoms or discomfort at this time. Arginext was taken before coming in to his Tx. 1st pleth at 1 min into Tx patient EECP pressure will increase if tolerable. 2nd pleth at 30 min into Tx patient is tolerating Tx pressure at 160 well with no discomfort at this time.Monitor shows excellent pleth valves with a heart rate of 85bpm. 3rd and final pleth at 49 min into Tx patient is doing well with no discomfort at this time.Monitor shows excellent pleth valves with a heart rate of 83bpm.Patient denies any symptoms or discomfort at this time.Patient has 11 min left till his Tx is completed for the day. At 53 min into Tx patient needs a restroom break per patient he would like to stop his Tx for the day if he only has 7 min left. Last BP check on his Left arm is at 125/78 with a heart rate of 67bpm. Patient denies any symptoms or discomfort at this time.
== END | disposition home or self-care (01) ==
LOC: CHF HDHVI 10:17
PROVIDERS: ATTEND Internal Medicine Cardiovascular Disease
DX: I25.718 Atherosclerosis of autologous vein coronary artery bypass graft(s) with other forms of angina pectoris (principal); I11.0 Hypertensive heart disease with heart failure; I50.23 Acute on chronic systolic (congestive) heart failure; I25.5 Ischemic cardiomyopathy; E11.9 Type 2 diabetes mellitus without complications; Z98.61 Coronary angioplasty status
CPT/HCPCS: G0166

== ENCOUNTER → 2018-10-29 | Outpatient (CLI) | payer MEDICARE, BC ==
[2018-10-29 13:31] VITALS: BP_SYST 133; BP_SYST 140; BP_DIAS 72
--- NOTE | 2018-10-29 13:31 | NUR ---
E[facility]P Tx# 30 First BP check on his Left arm is at 140/72 with a heart rate of 80bpm. Patient denies any symptoms or discomfort at this time. Arginext was taken before coming in to his Tx. 1st pleth at 10 min into Tx patient EECP pressure will increase if tolerable. 2nd pleth at 25 min into Tx patient is tolerating Tx pressure at 160 well with no discomfort at this time.Monitor shows excellent pleth valves with a heart rate of 69bpm. 3rd and final pleth at 45 min into Tx patient is doing well with no discomfort at this time.Monitor shows good pleth valves with a heart rate of 73bpm.Patient denies any symptoms or discomfort at this time.Patient has 15 min left till his Tx is completed for the day. Last BP check on his Left arm is at 133/72 with a heart rate of 76bpm. Patient denies any symptoms or discomfort at this time. Addendum: 10/30/18 at 1423 by HERB GARCIA [id number] DOCUMENTATION ERROR FOR DOS 10/29/2018 PLEASE DISREGARD EECP TX# 30 FOR THIS DOS. CORRECT EECP TX # 29.THANK YOU.
== END | disposition home or self-care (01) ==
LOC: CHF HDHVI 13:01
PROVIDERS: ATTEND Internal Medicine Cardiovascular Disease
DX: I25.718 Atherosclerosis of autologous vein coronary artery bypass graft(s) with other forms of angina pectoris (principal); I25.5 Ischemic cardiomyopathy; E11.9 Type 2 diabetes mellitus without complications; I50.23 Acute on chronic systolic (congestive) heart failure; Z98.61 Coronary angioplasty status
CPT/HCPCS: G0166

== ENCOUNTER → 2018-10-30 | Outpatient (CLI) | payer MEDICARE, BC ==
--- NOTE | 2018-10-30 13:31 | NUR ---
[facility] Tx# 30 First BP check on his Left arm is at 140/86 with a heart rate of 82bpm. Patient denies any symptoms or discomfort at this time. Arginext was taken before coming in to his Tx. 1st pleth at 1 min into Tx patient EECP pressure will increase if tolerable. 2nd pleth at 26 min into Tx patient is tolerating Tx pressure at 160 well with no discomfort at this time.Monitor shows excellent pleth valves with a heart rate of 87bpm. 3rd and final pleth at 44 min into Tx patient is doing well with no discomfort at this time.Monitor shows good pleth valves with a heart rate of 84bpm.Patient denies any symptoms or discomfort at this time.Patient has 16 min left till his Tx is completed for the day. Last BP check on his Left arm is at 140/76 with a heart rate of 70bpm. Patient denies any symptoms or discomfort at this time.
[2018-10-30 14:41] VITALS: BP_SYST 140; BP_DIAS 76; BP_DIAS 86
== END | disposition home or self-care (01) ==
LOC: CHF HDHVI 13:22
PROVIDERS: ATTEND Internal Medicine Cardiovascular Disease
DX: I25.718 Atherosclerosis of autologous vein coronary artery bypass graft(s) with other forms of angina pectoris (principal); I25.5 Ischemic cardiomyopathy; E11.9 Type 2 diabetes mellitus without complications; I50.23 Acute on chronic systolic (congestive) heart failure; Z98.61 Coronary angioplasty status
CPT/HCPCS: G0166

== ENCOUNTER → 2018-10-31 | Outpatient (CLI) | payer MEDICARE, BC ==
[2018-10-31 08:34] VITALS: BP_SYST 138; BP_SYST 140; BP_DIAS 70; BP_DIAS 79
--- NOTE | 2018-10-31 12:25 | NUR ---
E[facility]P Tx# 31 First BP check on his Left arm is at 140/79 with a heart rate of 75bpm. Patient denies any symptoms or discomfort at this time. Arginext was taken before coming in to his Tx. 1st pleth at 7 min into Tx patient EECP pressure will increase if tolerable. 2nd pleth at 48 min into Tx patient will like Tx pressure to be reduce to 120.Patient can't tolerate EECP pressure at 160 at this time. 3rd and final pleth at 55 min into Tx patient is doing well with no discomfort at this time.Monitor shows good pleth valves with a heart rate of 71bpm.Patient denies any symptoms or discomfort at this time.Patient has 5 min left till his Tx is completed for the day. Last BP check on his Left arm is at 138/70 with a heart rate of 73bpm. Patient denies any symptoms or discomfort at this time.
== END | disposition home or self-care (01) ==
LOC: Rad HDHVI 08:27
PROVIDERS: ATTEND Internal Medicine Cardiovascular Disease
DX: I25.718 Atherosclerosis of autologous vein coronary artery bypass graft(s) with other forms of angina pectoris (principal); I25.5 Ischemic cardiomyopathy; E11.9 Type 2 diabetes mellitus without complications; I11.0 Hypertensive heart disease with heart failure; I50.23 Acute on chronic systolic (congestive) heart failure; Z98.61 Coronary angioplasty status
CPT/HCPCS: G0166

== ENCOUNTER → 2018-11-03 | Outpatient (CLI) | payer MEDICARE, BC ==
[2018-11-03 13:30] VITALS: BP_SYST 125; BP_SYST 138; BP_DIAS 76; BP_DIAS 83
--- NOTE | 2018-11-03 13:30 | NUR ---
E[facility]P Tx# 32 First BP check on his Left arm is at 125/83 with a heart rate of 87bpm. Patient states he has body ache will like to continue Tx with low pressure. Arginext was taken before coming in to his Tx. 1st pleth at 7 min into Tx patient EECP pressure will stay at 80 due to patient c/o body ache.Will continue to monitor patient if any other changes occur. 2nd pleth at 32 min into Tx patient is tolerating Tx pressure at 80 with no complaints or discomfort at this moment.Monitor shows excellent pleth valves with a heart rate of 90.We will keep monitoring patient through his Tx if any changes occur. 3rd and final pleth at 50 min into Tx patient is doing well with no discomfort at this time.Monitor shows excellent pleth valves with a heart rate of 84bpm.Patient denies any symptoms or discomfort at this time.Patient has 10 min left till his Tx is completed for the day. Last BP check on his Left arm is at 138/76 with a heart rate of 76bpm. Patient denies any symptoms or discomfort at this time.
== END | disposition home or self-care (01) ==
LOC: CHF HDHVI 12:51
PROVIDERS: ATTEND Internal Medicine Cardiovascular Disease
DX: I25.718 Atherosclerosis of autologous vein coronary artery bypass graft(s) with other forms of angina pectoris (principal); I50.23 Acute on chronic systolic (congestive) heart failure; I25.5 Ischemic cardiomyopathy; E11.9 Type 2 diabetes mellitus without complications; Z98.61 Coronary angioplasty status
CPT/HCPCS: G0166

== ENCOUNTER → 2018-11-04 | Outpatient (CLI) | payer MEDICARE, BC ==
[2018-11-04 13:24] VITALS: BP_SYST 122; BP_SYST 128; BP_DIAS 71; BP_DIAS 80
--- NOTE | 2018-11-04 13:24 | NUR ---
E[facility]P Tx# 33 First BP check on his Left arm is at 122/80 with a heart rate of 64bpm. Patient states he has body ache will like to continue Tx with low pressure. Arginext was taken before coming in to his Tx. 1st pleth at 3 min into Tx patient EECP pressure will stay at 80 due to patient c/o body ache.Will continue to monitor patient if any other changes occur. 2nd pleth at 31 min into Tx patient is tolerating Tx pressure at 80 with no complaints or discomfort at this moment.Patient is resting at this time. 3rd and final pleth at 51 min into Tx patient is doing well with no discomfort at this time.Monitor shows excellent pleth valves with a heart rate of 83bpm.Patient has 09 min left till his Tx is completed for the day. Last BP check on his Left arm is at 128/71 with a heart rate of 64bpm. Patient denies any symptoms or discomfort at this time.
== END | disposition home or self-care (01) ==
LOC: CHF HDHVI 13:13
PROVIDERS: ATTEND Internal Medicine Cardiovascular Disease
DX: I25.718 Atherosclerosis of autologous vein coronary artery bypass graft(s) with other forms of angina pectoris (principal); I25.5 Ischemic cardiomyopathy; I50.23 Acute on chronic systolic (congestive) heart failure; E11.9 Type 2 diabetes mellitus without complications; Z98.61 Coronary angioplasty status
CPT/HCPCS: G0166

== ENCOUNTER → 2019-05-20 | Outpatient (CLI) | payer MEDICARE, BC ==
[~2019-05-20] MED LIST changes: +IOHEXOL 350 MG/ML 100ML IJ ONE
[2019-05-20 13:30] VITALS: BP 146/97
[2019-05-20 14:37] LABS: Albumin 4.5 g/dL (3.4-5.0); BUN/Creatinine Ratio 21.4; Calcium 9.5 mg/dL (8.5-10.1); Potassium 4.3 mmol/L (3.5-5.1)
[2019-05-20 14:41] LABS: Bilirubin, Total 0.9 mg/dL (0.2-1.0); Total Protein 7.3 g/dL (6.4-8.2)
[2019-05-20 15:04] VITALS: BP 160/84
--- NOTE | 2019-05-20 15:04 | NUR ---
ARRIVED AT [address] ABDOMEN AND PELVIS FOR WEIGHT LOSS. IV PLACED TO LEFT AC 22 GAUGE BY MAMI PENG. LABS DRAWN AND SENT STAT. RESULTS RETURNED AND SENT FOR CT SCAN, CREATININE 1.2. TOLERATED SCAN WELL. IV SITE DCD POST USE AND SITE BENIGN POST USE. DISCHARGED TO SELF CARE IN NO DISTRESS OR DISCOMFORT.
[2019-05-20 16:17] LABS: Basophils # (auto) 0.1 uL; Basophils % (auto) 1.3 % (0.0-2.0); Eosinophils # (auto) 0.1 uL; Eosinophils % (auto) 1.4 % (0.0-7.0); Hematocrit 45.3 % (41.0-53.0); Hemoglobin 15.6 g/dL (13.5-17.5); Lymphocytes # (auto) 1.2 uL; Lymphocytes % (auto) 13.2 % (10.0-50.0); Mean Corpuscular Hemoglobin 34.7 pg (28.0-32.0); Mean Corpuscular Hgb Conc. 34.4 g/dL (32.0-36.0); Monocytes # (auto) 0.7 uL; Monocytes % (auto) 7.4 % (0.0-12.0); Neutrophils # (auto) 6.8 uL; Neutrophils % (auto) 76.7 % (37.0-80.0); Nucleated Red Blood Cells % 0.1 %; Platelet Count (auto) 239 10^3/uL (140-450); Red Blood Cells 4.48 10^6/uL (4.5-5.90); Red Cell Distribution Width 15.9 % (11.8-14.3); White Blood Cell 8.9 10^3/uL (4.4-10.8)
[2019-05-20 16:25] LABS: Cholesterol 209 mg/dL (< 200); Triglycerides 147 mg/dL (< 150)
[2019-05-20 16:27] LABS: HDL Cholesterol 34 mg/dL (40-59); LDL Cholesterol 151 mg/dL (< 100)
== END | disposition home or self-care (01) ==
LOC: Rad HDHVI 13:17
PROVIDERS: ATTEND Internal Medicine Cardiovascular Disease
DX: K57.30 Diverticulosis of large intestine without perforation or abscess without bleeding (principal); I70.0 Atherosclerosis of aorta; M48.56XA Collapsed vertebra, not elsewhere classified, lumbar region, initial encounter for fracture; E78.5 Hyperlipidemia, unspecified; E03.9 Hypothyroidism, unspecified; D64.9 Anemia, unspecified; I10 Essential (primary) hypertension
CPT/HCPCS: 36415; 71260; 74177; 80053; 80061; 84439; 84443; 85025; G0463; Q9967

== ENCOUNTER → 2019-08-12 | Outpatient (CLI) | payer MEDICARE, BC ==
[~2019-08-12] MED LIST changes: -IOHEXOL 350 MG/ML 100ML IJ ONE
== END | disposition home or self-care (01) ==
LOC: Rad HDHVI 12:28
PROVIDERS: ATTEND Internal Medicine Cardiovascular Disease
DX: S46.912A Strain of unspecified muscle, fascia and tendon at shoulder and upper arm level, left arm, initial encounter (principal); M19.012 Primary osteoarthritis, left shoulder; M25.412 Effusion, left shoulder; M75.52 Bursitis of left shoulder; X58.XXXA Exposure to other specified factors, initial encounter; Y93.89 Activity, other specified; Y92.89 Other specified places as the place of occurrence of the external cause; Y99.8 Other external cause status
CPT/HCPCS: 73200

== ENCOUNTER → 2020-03-24 | Outpatient (CLI) | payer MEDICARE, BC | END | disposition home or self-care (01) | LOC: Rad HDHVI 15:49 | PROVIDERS: ATTEND Internal Medicine Cardiovascular Disease | DX: I25.10 Atherosclerotic heart disease of native coronary artery without angina pectoris (principal); I48.20 Chronic atrial fibrillation, unspecified; R06.02 Shortness of breath | CPT/HCPCS: 93306 ==

== ENCOUNTER → 2020-04-25 | Outpatient (CLI) | payer MEDICARE, BC | END | disposition home or self-care (01) | LOC: Rad HDHVI 16:35 | PROVIDERS: ATTEND Internal Medicine Cardiovascular Disease | DX: S32.029A Unspecified fracture of second lumbar vertebra, initial encounter for closed fracture (principal); S32.019A Unspecified fracture of first lumbar vertebra, initial encounter for closed fracture; M48.061 Spinal stenosis, lumbar region without neurogenic claudication; X58.XXXA Exposure to other specified factors, initial encounter; Y93.89 Activity, other specified; Y92.89 Other specified places as the place of occurrence of the external cause; Y99.8 Other external cause status | CPT/HCPCS: 72131 ==

== ENCOUNTER → 2020-04-26 | Outpatient (CLI) | payer MEDICARE, BC ==
[~2020-04-26] VITALS: Ht 172.7 cm; Wt 73.0 kg
[~2020-04-26] MED LIST changes: +ADENOSINE 61 MG in GIVE UN-DILUTED 0 ML IV ONE; +ADENOSINE 90 MG/30 ML INJ IV ONE
== END | disposition home or self-care (01) ==
LOC: Rad HDHVI 08:53
PROVIDERS: ATTEND Internal Medicine Cardiovascular Disease
DX: I25.10 Atherosclerotic heart disease of native coronary artery without angina pectoris (principal); I25.2 Old myocardial infarction; E11.9 Type 2 diabetes mellitus without complications
CPT/HCPCS: 78452; 93005; 96374; 96375; A9500; J0153

== ENCOUNTER → 2022-06-06 | Outpatient (CLI) | payer MEDICARE, BC ==
[~2022-06-06] MED LIST changes: -ADENOSINE 61 MG in GIVE UN-DILUTED 0 ML IV ONE; -ADENOSINE 90 MG/30 ML INJ IV ONE
[2022-06-06 11:43] LABS: Basophils # (auto) 0.1 10 ^3/uL (0-0.2); Basophils % (auto) 1.6 % (0.0-2.0); Eosinophils # (auto) 0.2 10 ^3/uL (0-0.8); Hematocrit 43.1 % (41.0-53.0); Hemoglobin 14.6 g/dL (13.5-17.5); Lymphocytes % (auto) 26.2 % (10.0-50.0); Mean Corpuscular Hemoglobin 33.6 pg (28.0-32.0); Mean Corpuscular Hgb Conc. 33.9 g/dL (32.0-36.0); Monocytes # (auto) 0.8 10 ^3/uL (0-1.3); Neutrophils # (auto) 4.6 10 ^3/uL (1.6-8.6); Neutrophils % (auto) 60.2 % (37.0-80.0); Red Blood Cells 4.35 10^6/uL (4.5-5.90); Red Cell Distribution Width 14.9 % (11.8-14.3); White Blood Cell 7.7 10^3/uL (4.4-10.8)
[2022-06-06 11:58] LABS: Potassium 4.1 mmol/L (3.5-5.1)
[2022-06-06 12:10] LABS: Albumin 3.9 g/dL (3.4-5.0); Bilirubin, Direct 0.2 mg/dL (0-0.2); Bilirubin, Total 0.6 mg/dL (0.2-1.0); Calcium 9.9 mg/dL (8.5-10.1)
== END | disposition home or self-care (01) ==
LOC: LAB 10:32
PROVIDERS: ATTEND Internal Medicine Cardiovascular Disease
DX: C61 Malignant neoplasm of prostate (principal); I10 Essential (primary) hypertension; E55.9 Vitamin D deficiency, unspecified; D51.3 Other dietary vitamin B12 deficiency anemia; D64.9 Anemia, unspecified; E11.9 Type 2 diabetes mellitus without complications; R00.2 Palpitations; R53.1 Weakness; R30.0 Dysuria
CPT/HCPCS: 36415; 80048; 80061; 80076; 82306; 83036; 84153; 84443; 85025

== ENCOUNTER → 2022-06-11 | Outpatient (CLI) | payer MEDICARE, BC | END | disposition home or self-care (01) | LOC: Rad HDHVI 07:54 | PROVIDERS: ATTEND Internal Medicine Cardiovascular Disease | DX: I65.23 Occlusion and stenosis of bilateral carotid arteries (principal); I10 Essential (primary) hypertension; E78.5 Hyperlipidemia, unspecified | CPT/HCPCS: 93880 ==

== ENCOUNTER → 2022-06-15 | Outpatient (CLI) | payer MEDICARE, BC | END | disposition home or self-care (01) | LOC: Rad HDHVI 08:44 | PROVIDERS: ATTEND Internal Medicine Cardiovascular Disease | DX: I10 Essential (primary) hypertension (principal); E78.5 Hyperlipidemia, unspecified | CPT/HCPCS: 93306 ==

== ENCOUNTER → 2022-06-22 | Outpatient (CLI) | payer MEDICARE, BC ==
[~2022-06-22] VITALS: Ht 172.7 cm; Wt 77.1 kg
[~2022-06-22] MED LIST changes: +ADENOSINE 65 MG in GIVE UN-DILUTED 0 ML IV ONE; +ADENOSINE 90 MG/30 ML INJ IV ONE
== END | disposition home or self-care (01) ==
LOC: Rad HDHVI 08:13
PROVIDERS: ATTEND Internal Medicine Cardiovascular Disease
DX: I25.10 Atherosclerotic heart disease of native coronary artery without angina pectoris (principal); I10 Essential (primary) hypertension; E78.5 Hyperlipidemia, unspecified; I25.2 Old myocardial infarction; E11.9 Type 2 diabetes mellitus without complications; Z82.49 Family history of ischemic heart disease and other diseases of the circulatory system
CPT/HCPCS: 78452; 93005; 96374; 96375; A9500; J0153

== ENCOUNTER → 2023-07-25 | Outpatient (CLI) | payer MEDICARE, BC ==
[~2023-07-25] MED LIST changes: -ADENOSINE 65 MG in GIVE UN-DILUTED 0 ML IV ONE; -ADENOSINE 90 MG/30 ML INJ IV ONE; +SIMV5TAB14; -SIMV5TAB50
== END | disposition home or self-care (01) ==
LOC: Rad HDHVI 12:44
PROVIDERS: ATTEND Internal Medicine Cardiovascular Disease
DX: I34.81 Nonrheumatic mitral (valve) annulus calcification (principal); E86.1 Hypovolemia; I51.7 Cardiomegaly; R06.02 Shortness of breath
CPT/HCPCS: 93306

== ENCOUNTER → 2023-07-31 | Outpatient (CLI) | payer MEDICARE, BC | END | disposition home or self-care (01) | LOC: Rad HDHVI 14:55 | PROVIDERS: ATTEND Internal Medicine Cardiovascular Disease | DX: I65.23 Occlusion and stenosis of bilateral carotid arteries (principal); I10 Essential (primary) hypertension; E78.5 Hyperlipidemia, unspecified | CPT/HCPCS: 93880 ==

== ENCOUNTER → 2023-08-14 | Outpatient (CLI) | payer MEDICARE, BC ==
[~2023-08-14] VITALS: Ht 170.2 cm; Wt 77.1 kg
[~2023-08-14] MED LIST changes: +ADENOSINE 52 MG in GIVE UN-DILUTED 0 ML IV ONE; +ADENOSINE 90 MG/30 ML INJ IV ONE
== END | disposition home or self-care (01) ==
LOC: Rad HDHVI 14:04
PROVIDERS: ATTEND Internal Medicine Cardiovascular Disease
DX: Z01.810 Encounter for preprocedural cardiovascular examination (principal); I11.0 Hypertensive heart disease with heart failure; I50.23 Acute on chronic systolic (congestive) heart failure; E11.21 Type 2 diabetes mellitus with diabetic nephropathy; I25.5 Ischemic cardiomyopathy; I25.2 Old myocardial infarction; I25.10 Atherosclerotic heart disease of native coronary artery without angina pectoris; E78.5 Hyperlipidemia, unspecified
CPT/HCPCS: 78452; 93005; 96374; 96375; A9500; J0153